=== PATIENT | male | born 1985 | race Caucasian/White ===

== ENCOUNTER 2024-08-10 10:48 | Day surgery (SDC) | payer OTHER, SELFPAY ==
[2024-08-02 12:26] VITALS: BMI 21.4
--- NOTE | 2024-08-10 | PATH_ITS ---
[facility] Accession Number: [id number] No. of containers..01 Tissue . 01 Material submitted: . hemorrhoids - LEFT LABERAL HEMORRHOID . 01 Diagnosis: LEFT LATERAL HEMORRHOID, EXCISION: Skin and subcutaneous tissue with dilated blood vessels, consistent with hemorrhoid. MRV 08/15/2024 1314 Local . 01 Electronically signed: . Uyen Kincaid DO, Pathologist NPI- [id number] . 01 Gross description: . LEFT LABERAL HEMORRHOID: Received in formalin is 1 fragment of jensen soft tissue measuring 2.0 x 1.0 x 1.5 cm. Tissue is inked. Specimen is sectioned and submitted in inside account representative sections in 1 cassette. /YESSY 08/11/20241940 Local . 01 Pathologist provided ICD-10: K64.2 . 01 CPT . 751110 Specimen Comment: A courtesy copy of this report has been sent to [phone] Performed at: [address] [address], [place], [place] [id number] MD Tin Lofton MD Phone: [phone]
[2024-08-10 11:08] VITALS: BP 126/73; PULSE 84; RESP 14; TEMP 36.7; O2SAT 97; BMI 21.2
[2024-08-10] MEDS: LACTATED RINGERS 1,000 ML 42 ML IV (11:25)
[2024-08-10] MEDS: ACETAMINOPHEN 325 MG TABLET 975 MG PO (11:25)
--- NOTE | 2024-08-10 11:34 | PM.PREOP ---
Pre-operative Note COVID-19 COVID-19 status: Not tested Interval Note History & Physical reviewed/Exam performed by Physician: Yes Changes to H&P: No ASA Class (for procedural sedation): I
--- NOTE | 2024-08-10 11:55 | SUR.OPER ---
Lithotomy on padded OR bed, head on pillow, arms secured on padded arm boards at <90 degrees abduction. Legs secured in padded yellow fins stirrups.
[2024-08-10] MEDS: BUPIVACAINE LIPOSOME 266 MG/20 ML VIAL INJ (12:11)
[2024-08-10 12:16] VITALS: BP 100/52; PULSE 63; RESP 16; TEMP 36.5; O2SAT 99
--- NOTE | 2024-08-10 12:17 | PM.OP.1 ---
Operative Date/Time/Diagnoses Date of procedure: 08/10/24 Time of procedure: 12:17 Pre-op diagnosis: Prolapsing internal hemorrhoid Post-op diagnosis: same Procedure & Clinicians Procedure: Excisional hemorrhoidectomy Same procedure as scheduled: Yes Surgeon: Farooq Jauregui Public Health Officer: Santhosh Wilson Anesthesia Type: General Operative Notes Findings: Left lateral prolapsing internal hemorrhoids Estimated Blood Loss (mL): 10 Procedure in detail: The patient was brought to the operating room and anesthesia was induced. He was positioned in high lithotomy position. The perineum was prepped and draped in the usual manner. A time-out was performed. A digital rectal exam was performed with a well lubricated finger. There was a prolapsing internal hemorrhoid originating from the left lateral dentate line. Exparel was injected into the anoderm and around the dentate line at the base of the hemorrhoid. A 2-0 chromic stitch was placed in the distal rectum just above the start of the hemorrhoid and tied down. The needle was then covered and stowed up on the patient's abdomen. We then grasped the hemorrhoid with an Allis clamp and excised it using the cut function of the Bovie. There were a few veins that were cauterized. We then injected additional Exparel and ran the chromic suture to close the wound. The digital rectal exam was repeated and there was no stenosis or other abnormalities. We injected a total of 16 mL of Exparel. The Gelfoam gauze was inserted into the anal canal. The patient was awakened and brought to recovery room. EBL: 10 mL Specimen: Left lateral hemorrhoid Santhosh RASMUSSEN provided assistance with exposure, retraction and closure of incisions. Complications: none Post-operative Condition: stable Disposition: PACU
[2024-08-10 12:21] VITALS: BP 99/59; PULSE 67; RESP 17; O2SAT 97
[2024-08-10 12:26] VITALS: BP 109/59; PULSE 74; RESP 15; O2SAT 100
[2024-08-10 12:31] VITALS: BP 103/64; PULSE 76; RESP 12; O2SAT 100
[2024-08-10 12:45] VITALS: BP 113/61; PULSE 72; RESP 13; O2SAT 100
== END 2024-08-10 12:53 | disposition home or self-care (01) ==
PROVIDERS: PCP Family Medicine; Referring Provider Surgery; Visit Provider Surgery
PROC: (CPT 46255; principal; 2024-08-10 12:15)
DX: K64.2 Third degree hemorrhoids (principal)
CPT/HCPCS: 46255; J0666; J1100; J1885; J2405; J2704; J3010